=== PATIENT | female | born 1985 | race African-American/Black ===

== ENCOUNTER 2022-09-09 11:08 | Inpatient (IN) | payer BC, OTHER ==
[2022-09-09] MEDS ORDERED: ELECTROLYTE-148 SOLN 500 ML IV ONE (11:30)
[2022-09-09] MEDS ORDERED: CITRIC ACID/SODIUM CITRATE 30 ML UNIT-DOSE CUP PO ONE (11:30)
[2022-09-09] MEDS: ELECTROLYTE-148 SOLN 1,000 ML IV SCH (12:00)
[2022-09-09] MEDS ORDERED: ONDANSETRON 4 MG/2 ML VIAL IVPUSH PRN (12:18)
[2022-09-09 13:13] VITALS: BMI 35.9
[2022-09-09] MEDS ORDERED: ELECTROLYTE-148 SOLN 1,000 ML IV SCH (14:15)
[2022-09-09] MEDS ORDERED: morphine SULFATE/PF 1 MG/2 ML (2cc Syringe - QUVA) IT ONE (14:26)
[2022-09-09] MEDS ORDERED: TRIAMCINOLONE ACET 40MG/1ML VIAL IM ONE (15:00)
[2022-09-09] MEDS ORDERED: ACETAMINOPHEN 325 MG TABLET (FP) PO PRN (15:48)
[2022-09-09] MEDS ORDERED: METHYLERGONOVINE MALEATE 0.2 MG/1 ML AMP IM PRN (15:48)
[2022-09-09] MEDS ORDERED: SENNOSIDES/DOCUSATE COMBO (SENNA PLUS) TABLET (UD) PO PRN (15:48)
[2022-09-09] MEDS ORDERED: OXYTOCIN 20 UNITS in 0.9% NS 20 UNIT/1,000 ML INFUS.BAG IV ONE (16:27)
[2022-09-09] MEDS ORDERED: IBUPROFEN 800 MG/8 ML IJ IVPB ONE (16:34)
[2022-09-09] MEDS: IBUPROFEN 800 MG/8 ML IJ IVPB PRN (16:45)
[2022-09-09] MEDS: OXYTOCIN 20 UNITS in 0.9% NS 20 UNIT/1,000 ML INFUS.BAG IV SCH (16:45)
[2022-09-09] MEDS ORDERED: ACETAMINOPHEN 1000 MG/100 ML BAG IVPB ONE (17:55)
[2022-09-10] MEDS: OXYTOCIN 20 UNITS in 0.9% NS 20 UNIT/1,000 ML INFUS.BAG IV SCH (02:29)
[2022-09-10] MEDS ORDERED: oxyCODONE HCL 5 MG TABLET PO PRN ×2 (03:48)
[2022-09-10] MEDS: SIMETHICONE 80 MG TAB.CHEW (FP) PO PRN ×3 (06:10→20:24)
[2022-09-10] MEDS: IBUPROFEN 800 MG/8 ML IJ IVPB PRN (06:11)
[2022-09-10 08:37] LABS: BASO % 0.3 % (0-2.0); EOS % 0.1 % (0-4.5); HEMOGLOBIN 11.3 GM/dL (10.7-15.3); LYMPH % 10.5 % (8-40); MCHC 32.4 g/dl (32.0-36.0); MEAN CELL VOLUME 83.4 fl (80-96); MEAN PLT VOLUME 9.4 fl (7.5-11.1); MONO % 10.6 % (3.8-10.2); NEUT % 78.5 % (42.8-82.8); PLATELET COUNT 192 10^3/uL (134-434); RDW 14.5 % (11.6-15.6); WHITE BLOOD COUNT 12.8 K/mm3 (4.0-10.0)
[2022-09-10] MEDS ORDERED: DIPHTH,PERTUSS(ACELL),TET 0.5 ML DISP.SYRIN IM ONE (10:00)
[2022-09-10] MEDS ORDERED: FLU VACC QS2022-23(6MOS UP)/PF 60 MCG/0.5 ML SYRINGE IM ONE (10:00)
[2022-09-10] MEDS: PRENATAL VITAMINS W/ FOLIC ACID TABLET (FP) PO SCH (10:28)
[2022-09-10] MEDS ORDERED: BISACODYL 10 MG SUPP.RECT RC PRN (15:48)
[2022-09-10] MEDS: IBUPROFEN 600 MG TABLET (FP) PO PRN ×2 (16:24→20:24)
[2022-09-11] MEDS: IBUPROFEN 600 MG TABLET (FP) PO PRN ×4 (06:08→20:29)
[2022-09-11] MEDS: SIMETHICONE 80 MG TAB.CHEW (FP) PO PRN ×4 (06:08→20:29)
[2022-09-11] MEDS: PRENATAL VITAMINS W/ FOLIC ACID TABLET (FP) PO SCH (10:14)
[2022-09-11 10:26] VITALS: RESP 18
[2022-09-11 22:15] VITALS: PULSE 86; TEMP 98.4
[2022-09-11] MEDS: ELECTROLYTE-148 SOLN 1,000 ML IV SCH (22:52)
[2022-09-11] MEDS: OXYTOCIN 20 UNITS in 0.9% NS 20 UNIT/1,000 ML INFUS.BAG IV SCH (22:52)
[2022-09-12] MEDS: SIMETHICONE 80 MG TAB.CHEW (FP) PO PRN ×2 (05:20→08:58)
[2022-09-12] MEDS: IBUPROFEN 600 MG TABLET (FP) PO PRN ×2 (05:20→08:58)
[2022-09-12] MEDS: PRENATAL VITAMINS W/ FOLIC ACID TABLET (FP) PO SCH (09:16)
[2022-09-12 10:11] VITALS: BP 115/69
== END 2022-09-12 13:00 | disposition home or self-care (01) | DRG 788 ==
LOC: JLDR 11:08 → J3W 17:13
PROVIDERS: ADMIT Obstetrics & Gynecology; ATTEND Obstetrics & Gynecology
PROC: 10D00Z1 Extraction of Products of Conception, Low, Open Approach (ICD-10-PCS; principal; 2022-09-09)
DX: O34.211 Maternal care for low transverse scar from previous cesarean delivery (principal); O69.81X0 Labor and delivery complicated by cord around neck, without compression, not applicable or unspecified; N73.6 Female pelvic peritoneal adhesions (postinfective); Z3A.39 39 weeks gestation of pregnancy; Z37.0 Single live birth
CPT/HCPCS: 36415; 85025; 88307-TC; 90715; G0008; Q2036